=== PATIENT | female | born 1965 | race Caucasian/White ===

== ENCOUNTER 2022-08-21 18:02 | Emergency (ER) | payer OTHER ==
[~2022-08-21] VITALS: Ht 182.9 cm; Wt 76.1 kg
[2022-08-21 18:29] VITALS: BP 138/107
[2022-08-21] MEDS ORDERED: AMOX-277 PO (18:47)
[2022-08-21] MEDS ORDERED: PRED20TA2 PO (18:47)
[2022-08-21] MEDS ORDERED: ONDA-144 PO (18:47)
[2022-08-21] MEDS ORDERED: methylPREDNISolone SOD SUCC 125 MG/2 ML VL IM ONE (19:00)
[2022-08-21] MEDS ORDERED: ONDANSETRON ODT 4 MG TAB PO ONE (19:00)
== END 2022-08-21 20:23 | disposition home or self-care (01) ==
LOC: ER 18:04
DX: J06.9 Acute upper respiratory infection, unspecified (principal); Z88.6 Allergy status to analgesic agent; Z88.1 Allergy status to other antibiotic agents; Z20.822 Contact with and (suspected) exposure to COVID-19
CPT/HCPCS: 36415; 87426; 87804; 96372; 99283; J2930; Q0162